=== PATIENT | female | born 1980 | race Hispanic/Latino ===

== ENCOUNTER 2018-12-29 13:50 | Outpatient (CLI) | payer OTHER ==
--- NOTE | 2018-12-29 14:28 | ULT ---
EXAM: Transabdominal and transvaginal pelvic ultrasound with Doppler PROVIDED CLINICAL HISTORY: Irregular menses COMPARISON: None FINDINGS: The uterus measures approximately 7.8 x 3.7 x 3.7 cm and demonstrates a normal sonographic appearance . Uterine endometrial thickness is 6 mm. Cervical nabothian cysts are seen. Right ovary measures approximately 4.2 x 2.5 x 1.9 cm and demonstrates a normal sonographic appearanc e. Left ovary measures approximately 3.0 x 1.7 x 1.7 cmdemonstrates a normal sonographic appearance. Grayscale and color Doppler sonography with spectral analysis of the ovarian waveforms demonstrates n ormal flow bilaterally. There is no evidence for free pelvic fluid. IMPRESSION: Unremarkable pelvic ultrasound.
== END 2018-12-29 13:51 | disposition home or self-care (01) ==
LOC: BICULT 13:50
PROVIDERS: ATTEND Family Medicine
DX: N92.1 Excessive and frequent menstruation with irregular cycle (principal); D64.9 Anemia, unspecified
CPT/HCPCS: 76856